=== PATIENT | female | born 1990 | race Caucasian/White ===

== ENCOUNTER 2017-08-24 16:08 | Inpatient (IN) | payer BC, MEDICAID ==
[2017-08-24] MEDS ORDERED: OXYTOCIN/DEXTROSE 5%-WATER 30 UNITS/500 ML BAG IV ONE (16:30)
[2017-08-24] MEDS ORDERED: ONDANSETRON HCL/PF 2 MG/ML VIAL IV PRN ×2 (16:30→16:47)
[2017-08-24] MEDS ORDERED: RINGER'S SOLUTION,LACTATED 1,000 ML IV ONE (16:30)
[2017-08-24] MEDS ORDERED: LIDOCAINE HCL 50 ML VIAL PERI PRN (16:30)
[2017-08-24] MEDS ORDERED: NALOXONE HCL 1 MG/1 ML SYRG IV PRN (16:47)
[2017-08-24] MEDS ORDERED: BUPIVACAINE HCL/0.9 % NACL/PF 250 ML EP PRN (16:47)
[2017-08-24 16:53] LABS: Hematocrit 39.8 % (37.0-47.0); Hemoglobin 13.6 gm/dL (12.5-16.0); Mean Cell Volume 89.2 fl (78-100); Mean Corpuscular Hemoglobin 30.5 pg (27-31); Mean Corpuscular Hgb Conc 34.2 g/dl (32-36); Mean Platelet Volume 9.2 fl (6.0-9.5); Neutrophil # 11.9 K/mm3 (1.3-6.0); Neutrophil % 83.7 % (42-75.0); Platelet Count 286 K/mm3 (150-450); Red Blood Count 4.46 M/mm3 (4.2-5.4); Red Cell Distribution Width 13.2 % (11.5-14.0); White Blood Count 14.2 K/mm3 (4.0-10.5)
[2017-08-24] MEDS ORDERED: LIDOCAINE HCL/PF 5 ML VIAL ONE (17:29)
[2017-08-24] MEDS: fentaNYL CITRATE/PF 50 MCG/ML AMPUL IT SCH ×2 (17:35→17:58)
--- NOTE | 2017-08-24 17:51 | OR ---
Anesthesia Procedure Note - Anesthesia Procedure Note Narrative: Vital Signs - Last Taken Temp 36.5 C 08/24/17 17:13 Pulse 77 08/24/17 17:13 Resp 20 08/24/17 17:13 BP 146/82 08/24/17 17:13 Pulse Ox 98 08/24/17 17:13 08/24/17 17:50 ANESTHESIA PROCEDURE NOTE Date of Procedure: 08/24/2017 Time of procedure: 1730. Performed by: Hipolito Ibanez CRNA Drum Reel Cutter: None. Preprocedure diagnosis: Active labor. Post procedure diagnosis: Same. Procedure: Insertion of labor epidural. Indications: The patient is a 27 -year-old prima para female in active labor requesting labor epidural for pain management. Findings: See below. Details of the procedure: The patient was placed in a sitting position. Back was prepped with DuraPrep. Patient was then draped in a sterile fashion. Lidocaine 1% was infiltrated to the skin and subcutaneous tissues at the level of the L3 4 interspace. The epidural space was identified using a 18-gauge Tuohy needle with [id number] technique. 20 mcg fentanyl was given intrathecally using a 27 ga. spinal needle. Epidural catheter was inserted without difficulty. Negative test dose was elicited using 5 mL of 1.5% preservative-free lidocaine plus epinephrine 1 200,000. The epidural catheter was then taped and secured in place. EBL: Minimal. Fluids: N/A. Specimen: N/A. Post procedure condition: The patient tolerated the procedure well. No complications were noted. Thank you for this consultation. Meyer CRNA
[2017-08-24] MEDS: RINGER'S SOLUTION,LACTATED 1,000 ML IV PRN ×2 (18:25→21:08)
[2017-08-24] MEDS ORDERED: LIDOCAINE HCL IJ ONE (18:45)
[2017-08-24] MEDS ORDERED: DEXTROSE 5%-LACTATED RINGERS 1,000 ML IV PRN (22:30)
[2017-08-24] MEDS ORDERED: HYDROcodone/ACETAMINOPHEN 1 EACH TABLET PO PRN (23:40)
[2017-08-24] MEDS ORDERED: BENZOCAINE/MENTHOL 81 SPRAY CAN TP PRN (23:40)
[2017-08-24] MEDS ORDERED: GLYCERIN/WITCH HAZEL LEAF 40 APPL BOX TP PRN (23:40)
[2017-08-24] MEDS ORDERED: HYDROCORTISONE 30 APPL TUBE TP PRN (23:40)
[2017-08-24] MEDS ORDERED: SENNOSIDES 8.6 MG TABLET PO PRN (23:40)
[2017-08-24] MEDS ORDERED: BISACODYL 10 MG SUPP.RECT RC PRN (23:40)
[2017-08-24] MEDS ORDERED: diphenhydrAMINE HCL 25 MG CAPSULE PO PRN (23:40)
--- NOTE | 2017-08-24 23:40 | OR ---
Operative Report - Dictated Report Narrative: Spontaneous Vaginal Delivery Note: 27 yo, CF, G1 at 40.2 week, admitted in early labor, dilated to 1.5 cm at admission. Had been seen multiple times for labor pain. GBS was negative. Received epidural soon after admission. Progressed to rim with SROM at 20:01 with clear fluid and then complete dilation on her own without augmentation. The perineum cleaned with betadine. Pushed for over 1h 15 min. Head delivered in ANTOINETTE over the perineum. Tight nuchal cord x 1 was unable to reduce and delivered through shoulders and the rest of the baby without difficulty. Baby cried at perineum. Baby placed on maternal abdomen for drying and care by the nursing. Cord was clamped after 1 min of life, and cut by the patient's friend. Cord blood was obtained. Placenta delivered intact with 3 vessel cord. Pitocin drip started after placenta delivered. Exam of the perineum, vaginal and cervix revealed a second degree perineum laceration 2 cm and a right sulcus tear 1.5 cm. There was repaired with 3-0 Vicryl suture in a normal fashion. Small periurethral tears were hemostatic and no repair needed. Fundus was massaged and firm. Bleeding was minimal. Mother and baby tolerated the delivery well. EBL 150 ml. : male, 3931 grams, 8 lbs and 10.6 oz. 9/9. Time of delivery: 22:55. Nacho Santana MD History for Definition: * The number of deliveries resulting in a live the patient experienced prior to current hospitalization * The previous delivery of live twins or any live multiple gestation is considered one live event. *If primagravida or nulliparous is documented select zero for the number of previous live births. Live Events: 0
[2017-08-25] MEDS: IBUPROFEN 800 MG TABLET PO PRN ×2 (08:14→21:22)
[2017-08-25] MEDS: DOCUSATE SODIUM 100 MG CAPSULE PO SCH ×2 (08:14→21:22)
--- NOTE | 2017-08-25 08:55 | PN ---
Progess Note - Interim Narrative: 08/25/17 08:54 progress note Subjective: The patient is doing well. She is ambulating, voiding, tolerating by mouth. She has minimal pain and moderate lochia. Objective: General: No acute distress Abdomen: Soft, nontender, fundus is firm just below the umbilicus Extremities: minimal edema, nontender to palpation Assessment and plan: day 1 Feeding: Breast Pain: Controlled with by mouth medication control: Mirena Routine care.
[2017-08-26] MEDS: DOCUSATE SODIUM 100 MG CAPSULE PO SCH (09:16)
--- NOTE | 2017-08-26 10:01 | PN ---
Progess Note - Interim Narrative: 08/26/17 10:01 progress note Subjective: The patient is doing well. She is ambulating, voiding, tolerating by mouth. She has minimal pain and moderate lochia. Objective: General: No acute distress Abdomen: Soft, nontender, fundus is firm just below the umbilicus Extremities: minimal edema, nontender to palpation Assessment and plan: day 2 Feeding: Breast Pain: Controlled with by mouth medication control: Mirena Routine care.
[2017-08-26 13:02] VITALS: BP 128/60
== END 2017-08-26 12:30 | disposition home or self-care (01) | DRG 775 ==
LOC: OB 16:08
PROVIDERS: ADMIT Obstetrics & Gynecology; ATTEND Obstetrics & Gynecology
PROC: 10E0XZZ Delivery of Products of Conception, External Approach (ICD-10-PCS; principal; 2017-08-24)
PROC: 0KQM0ZZ Repair Perineum Muscle, Open Approach (ICD-10-PCS; 2017-08-24)
PROC: 4A1HXCZ Monitoring of Products of Conception, Cardiac Rate, External Approach (ICD-10-PCS; 2017-08-24)
PROC: 00HU33Z Insertion of Infusion Device into Spinal Canal, Percutaneous Approach (ICD-10-PCS; 2017-08-24)
DX: O70.1 Second degree perineal laceration during delivery (principal); Z37.0 Single live birth; Z3A.40 40 weeks gestation of pregnancy